=== PATIENT | male | born 2000 | race Hispanic/Latino ===

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

== ENCOUNTER 2022-12-16 15:12 | Observation (INO) | payer OTHER ==
[~2022-12-16] VITALS: Ht 177.8 cm; Wt 113.4 kg
[~2022-12-16 15:12] MED LIST changes: +TOBRAMYCIN0.3 % OS
--- NOTE | 2022-12-16 15:12 | NUR ---
PT ARRIVE TO ER VIA EMS. PT PLACED IN RM 3. PROVIDER NOTIFIED.
--- NOTE | 2022-12-16 15:38 | NUR ---
PT LAYING IN BED, MEDICATED PER EMAR TOLERATING MEDS WELL; FAMILIES AT BEDSIDE.
--- NOTE | 2022-12-16 15:54 | NUR ---
PT INFORMED WE NEED UA.
[2022-12-16 16:33] LABS: BASO% 0.3 % (0-3); EOS% 0.2 % (0-8); HEMATOCRIT 50.1 % (39.0-50.0); HEMOGLOBIN 16.6 g/dl (14.0-18.0); IMMATURE GRANULOCYTES 0.3 % (0.0-5.0); LYMPH% 11.1 % (15-41); MEAN CELL VOLUME 81.1 fL CALC (80.0-100.0); MEAN CORPUSCULAR HGB 26.9 pG CALC (26.0-32.0); MEAN CORPUSCULAR HGB CONC 33.1 g/dL CAL (32.0-36.0); MONO% 5.6 % (2-13); NEUT# 8.91 thou/uL (1.82-7.42); NEUT% 82.5 % (42-76); RED BLOOD COUNT 6.18 mill/uL (4.70-6.10); RED CELL DISTRI WIDTH 12.2 % (11.5-15.5)
[2022-12-16 16:46] LABS: ALBUMIN 4.3 g/dL (3.2-5.0); ALKALINE PHOSPHATASE 104 u/l (38-126); ANION GAP 17 (6-22 (CALC)); BUN 10 mg/dL (9-20); BUN/CREATININE RATIO 17 (12-20 (CALC)); CARBON DIOXIDE 21 mmol/l (22-30); CHLORIDE 103 mmol/l (95-108); CREATININE 0.6 mg/dL (0.7-1.3); GFR FOR AFR.AMER. > 60 ML/MIN (>=60 (CALC)); GFR OTHER RACES > 60 ML/MIN (>=60 (CALC)); POTASSIUM 4.8 mmol/l (3.5-5.1); SGOT/AST 38 u/l (17-59); SODIUM 136 mmol/l (137-146); TOTAL PROTEIN 7.6 g/dL (6.3-8.2)
[2022-12-16 16:52] LABS: BILIRUBIN, TOTAL 0.9 mg/dL (0.2-1.3)
--- NOTE | 2022-12-16 17:41 | NUR ---
PT REMINDED AGAIN OF UA.
--- NOTE | 2022-12-16 18:27 | NUR ---
PT SITTING UP IN BED COMMUNICATING WITH FAMILIES, HE STATED "I FEEL MUCH BETTER NOW" VOICE NO CONCERNS.
[2022-12-16 18:40] LABS: URINE BILIRUBIN - DIPSTICK NEGATIVE (NEGATIVE); URINE BLOOD DIPSTICK MODERATE (NEGATIVE); URINE COLOR YELLOW; URINE GLUCOSE - DIPSTICK >=1000 mg/dL (NEGATIVE); URINE KETONE >=80 mg/dL (NEGATIVE); URINE LEUK ESTERASE NEGATIVE (NEGATIVE); URINE PH 6.5 (4.5-8.0); URINE PROTEIN - DIPSTICK 100 mg/dL (NEG-TRACE); URINE SPECIFIC GRAVITY 1.025; URINE UROBILINOGEN - DIPSTICK 0.2 E.U./dL (0.2)
[2022-12-16 18:45] LABS: URINE NITRITE - DIPSTICK NEGATIVE (Negative)
[2022-12-16 18:56] LABS: URINE WBC 0-2 WBC/hpf (0-5)
--- NOTE | 2022-12-16 19:10 | NUR ---
PT C/O OF NAUSEA AND ABD PAIN, MD NOTIFIED.
--- NOTE | 2022-12-16 20:41 | NUR ---
to floor with pt in w/c.
[2022-12-16 20:53] VITALS: BP 115/48
--- NOTE | 2022-12-16 21:07 | NUR ---
PT ARRIVED TO MS @2049 VIA WHEELCHAIR, ACCOMPANIED BY KARYNA ARNETT. PT ORIENTED TO ROOM AND USE OF CALL LIGHT. VS AND ASSESSMENT COMPLETED. PT A&O X3. EVEN AND UNLABORED RESPIRATIONS; CLEAR LUNG SOUNDS ON LOLIS. IV SITE HEALTHY AND PATENT. SKIN IS INTACT. SAFETY PRECAUTIONS IN PLACE WITH CALL LIGHT IN REACH.
--- NOTE | 2022-12-17 | NUR ---
PT RESTING WITH EYES CLOSED. FAMILY MEMBER AT BEDSIDE. NO DISTRESS OR PAIN NOTED. NO NEEDS AT THIS TIME. SAFETY PRECAUTIONS IN PLACE WITH CALL LIGHT IN REACH.
[2022-12-17 06:20] VITALS: BP 100/59
--- NOTE | 2022-12-17 06:20 | NUR ---
PT WAKING UP AIDE ENTERS THE ROOM. VS COMPLETED. NO DISTRESS NOTED. PT DENIES PAIN AT THIS TIME. FAMILY MEMBER AT BEDSIDE. NO NEEDS AT THE MOMENT. SAFETY PRECAUTIONS IN PLACE WITH CALL LIGHT IN REACH.
[2022-12-17 07:24] VITALS: BP 100/59
--- NOTE | 2022-12-17 07:30 | NUR ---
RECEIVED REPORT FROM NIGHTSHIFT NURSE. PT NOTED LAYING IN BED, A/OX3. GIRLFRIEND AT BEDSIDE. PT DENIES ANY PAIN OR N/V AT THIS TIME. PT EXPRESSED BEING ABLE TO EAT SNACKS THROUGH OUT NIGHT WITH NO COMPLICATIONS. PT ASSESSMENT COMPLETED, EMS IV SITE NOTED IN RT AC. APPEARS HEALTHY WITH BLOOD RETURN. CALL LIGHT WITHIN REACH AND SAFETY PRECAUTIONS IN PLACE.
[2022-12-17 07:42] LABS: MAGNESIUM 1.8 mg/dL (1.6-2.3)
[2022-12-17 07:51] LABS: CHOLESTEROL HDL RATIO 7.5 (<4.4 (CALC))
[2022-12-17] MEDS ORDERED: LEVEMIR FL100 UNIT/M SC (11:32)
--- NOTE | 2022-12-17 11:58 | NUR ---
EDUCATED PT ON DIABETES, BLOOD SUGAR, AND INSULIN. PT DEMONTRATED SELF INJECTION ON LEVEMIR PER EMAR IN ABD. PT EXPRESSED UNDERSTANDING OF INSULIN PROTOCOL AND DIETS TO FOLLOW. WILL FOLLOW UP AFTER LUNCH OF EDUCATION AND DEMONSTRATION OF GLUCOMETER. CALL LIGHT WITHIN REACH AND SAFETY PRECAUTIONS IN PLACE.
--- NOTE | 2022-12-17 13:49 | NUR ---
Discharge instructions given. Patient verbalizes understanding of same. Discharged in stable condition via Wheelchair to Home with family. All belongings sent with pt. PT DEMONSTRATED USE OG GLUCOMETER. PT INIDICATED UNDERSTANDING OF DIABETIC DIAGNOSIS AND BEGINNING DIET. IV REMOVED W/ CATHETER INTACT.
== END 2022-12-17 13:48 | disposition home or self-care (01) ==
LOC: ED 15:12 → MS2 19:26
PROVIDERS: Internal Medicine; Nurse Practitioner; ADMIT Internal Medicine; ATTEND Internal Medicine
DX: E11.65 Type 2 diabetes mellitus with hyperglycemia (principal); E86.0 Dehydration; T38.3X6A Underdosing of insulin and oral hypoglycemic [antidiabetic] drugs, initial encounter; Z91.128 Patient's intentional underdosing of medication regimen for other reason; Z79.4 Long term (current) use of insulin; Z79.84 Long term (current) use of oral hypoglycemic drugs; Z20.822 Contact with and (suspected) exposure to COVID-19
CPT/HCPCS: G0378; Q9967

== ENCOUNTER 2023-07-09 09:11 | Observation (INO) | payer OTHER ==
[~2023-07-09] VITALS: Ht 177.8 cm; Wt 118.6 kg
[2023-07-09] VITALS (29 sets, daily range): BP systolic 90–153; BP diastolic 44–102
[~2023-07-09 09:11] MED LIST changes: +LEVEMIR FL100 UNIT/M SC
--- NOTE | 2023-07-09 09:14 | NUR ---
PT WALKED BACK TO ER ROOM 14, FAMILY AT SIDE
[2023-07-09 09:34] LABS: BASO% 0.2 % (0-3); EOS% 0.2 % (0-8); HEMATOCRIT 50.9 % (39.0-50.0); HEMOGLOBIN 17.3 g/dl (14.0-18.0); IMMATURE GRANULOCYTES 0.2 % (0.0-5.0); LYMPH% 16.7 % (15-41); MEAN CELL VOLUME 81.2 fL CALC (80.0-100.0); MEAN CORPUSCULAR HGB 27.6 pG CALC (26.0-32.0); MONO% 7.5 % (2-13); NEUT# 7.64 thou/uL (1.82-7.42); NEUT% 75.2 % (42-76); RED BLOOD COUNT 6.27 mill/uL (4.70-6.10); RED CELL DISTRI WIDTH 12.2 % (11.5-15.5)
--- NOTE | 2023-07-09 09:36 | NUR ---
PT MEDICATED PER EMAR, PT SITING IN BED, PT CO NAUSEA AND VOMITING, CALL LIGHT WITHIN REACH, VSS
[2023-07-09 09:53] LABS: ALBUMIN 4.2 g/dL (3.2-5.0); ALKALINE PHOSPHATASE 107 u/l (38-126); BILIRUBIN, TOTAL 0.9 mg/dL (0.2-1.3); BUN 8 mg/dL (9-20); BUN/CREATININE RATIO 12 (12-20 (CALC)); CARBON DIOXIDE 21 mmol/l (22-30); CHLORIDE 100 mmol/l (95-108); CREATININE 0.7 mg/dL (0.7-1.3); GFR FOR AFR.AMER. > 60 ML/MIN (>=60 (CALC)); GFR OTHER RACES > 60 ML/MIN (>=60 (CALC)); SGOT/AST 51 u/l (17-59); SODIUM 136 mmol/l (137-146)
[2023-07-09 09:57] LABS: ANION GAP 18 (6-22 (CALC)); POTASSIUM 3.4 mmol/l (3.5-5.1)
--- NOTE | 2023-07-09 10:10 | NUR ---
PT MEDICATED PER EMAR, PT CO ABD PAIN 06/18, MD NOTIFIED
[2023-07-09] MEDS ORDERED: K-TAB20 MEQ PO (10:21)
[2023-07-09] MEDS ORDERED: ZOFRAN4 MG/TAB PO (10:21)
--- NOTE | 2023-07-09 10:29 | NUR ---
pt medicated per emar, vss, asked pt for a urine sample, per pt he is not able to viod at this time, call light within reach
--- NOTE | 2023-07-09 11:30 | NUR ---
PT C/O C/P 06/18, VSS SEE VS LOG, EKG DONE, PROVIDER INFORMED AND GIVEN EKG RESULTS.
--- NOTE | 2023-07-09 12:07 | NUR ---
PROVIDER AT BEDSIDE TO GO OVER TEST RESULTS
[2023-07-09 12:12] LABS: URINE BILIRUBIN - DIPSTICK Negative (NEGATIVE); URINE BLOOD DIPSTICK Moderate (NEGATIVE); URINE GLUCOSE - DIPSTICK 500 mg/dL (NEGATIVE); URINE KETONE >=160 mg/dL (NEGATIVE); URINE LEUK ESTERASE Negative (NEGATIVE); URINE NITRITE - DIPSTICK Negative (Negative); URINE PROTEIN - DIPSTICK >=300 mg/dL (NEG-TRACE)
[2023-07-09 12:17] LABS: URINE COLOR Yellow
--- NOTE | 2023-07-09 13:59 | NUR ---
PT MEDICATIED PER EMAR, REPORTS RELIEF FROM NAUSEA, VSS, RESTING AND CALM, CALL LIGHT IN REACH, IN ROOM, ADVISED WAIT TIME FOR ADMISSION.
--- NOTE | 2023-07-09 14:43 | NUR ---
CALLED REPORT TO HANDS ASSEMBLERKARYNA SIGALA
--- NOTE | 2023-07-09 14:50 | NUR ---
PT TRANSPORTED TO ICU BED 8, VSS, LENS POLISHER AT BEDSIDE FOR ADDITIONAL REPORT
--- NOTE | 2023-07-09 15:00 | NUR ---
REPORT RECIEVED FROM CROWNING INSPECTOR. PT CAME TO ER DUE TO N/V AND ABDOMINAL PAIN. PT ADMITTED WITH COVID PNEUMONIA AND HYPERGLYCEMIA; PT REPORTED TO HAVE DIABETES SINCE AGE 8. PT BROUGHT TO ICU A MED-SURG OVERFLOW BY WHEELCHAIR. PT IS A/O. LUNGS DIMINISHED. PT IS ON RA. DENIES SOB AT THIS TIME. NO COUGH NOTED. HEART RHYTHM REGULAR; PT IS NSR. ABDOMEN SOFT/NON-TENDER. PT DENIES NAUSEA AT THIS TIME. EMESIS BAG AT BEDSIDE. PULSES STRONG ALL EXTREMETIES. SKIN W/D/I. AFEBRILE. IV ACCESS 20G RAC. PT DENIES ANY NEEDS AT THIS TIME. CALL LIGHT AND BELONGINGS WITHIN REACH. VSS. FAMILY AT BEDSIDE.
--- NOTE | 2023-07-09 17:08 | NUR ---
PT REQUESTING SOMETHING TO EAT. PT GIVEN JELLO. FAMILY AT BEDSIDE. VSS.
--- NOTE | 2023-07-09 19:30 | NUR ---
awake. denies distress. youth nutritional monitor shows sinus rhythm. #20 rac ns infusing @ 100cchr. po fluids taken well. voids without diff. @ bedside. dall precautions cont.
[2023-07-10] VITALS (9 sets, daily range): BP systolic 100–128; BP diastolic 52–84
[2023-07-10 06:13] LABS: BASO% 0.4 % (0-3); EOS% 0.6 % (0-8); HEMATOCRIT 45.1 % (39.0-50.0); IMMATURE GRANULOCYTES 0.2 % (0.0-5.0); LYMPH% 17.6 % (15-41); MEAN CELL VOLUME 83.2 fL CALC (80.0-100.0); MEAN CORPUSCULAR HGB 27.7 pG CALC (26.0-32.0); MEAN CORPUSCULAR HGB CONC 33.3 g/dL CAL (32.0-36.0); MONO% 10.1 % (2-13); NEUT# 5.78 thou/uL (1.82-7.42); NEUT% 71.1 % (42-76); RED BLOOD COUNT 5.42 mill/uL (4.70-6.10); RED CELL DISTRI WIDTH 12.3 % (11.5-15.5)
[2023-07-10 06:26] LABS: ALKALINE PHOSPHATASE 75 u/l (38-126); ANION GAP 11 (6-22 (CALC)); BILIRUBIN, TOTAL 0.8 mg/dL (0.2-1.3); BUN 9 mg/dL (9-20); BUN/CREATININE RATIO 13 (12-20 (CALC)); CARBON DIOXIDE 24 mmol/l (22-30); CHLORIDE 105 mmol/l (95-108); CREATININE 0.7 mg/dL (0.7-1.3); GFR FOR AFR.AMER. > 60 ML/MIN (>=60 (CALC)); GFR OTHER RACES > 60 ML/MIN (>=60 (CALC)); MAGNESIUM 1.8 mg/dL (1.6-2.3); POTASSIUM 3.8 mmol/l (3.5-5.1); SGOT/AST 30 u/l (17-59); SODIUM 137 mmol/l (137-146)
[2023-07-10 06:27] LABS: ALBUMIN 3.2 g/dL (3.2-5.0)
--- NOTE | 2023-07-10 07:30 | NUR ---
PERFROMED BEDSIDE REPORT WITH NIGHTSHIFT NURSE. PT NOTED LAYING SEMI FOWLERS IN BED, RESTING COMFORTABLY AT THIS TIME. AT BED SIDE. PT ON RM AIR, NO S/S OF DISTRESS. VSS. CALL LIGHT WITHIN REACH AND SAFETY PRECAUTIONS IN PPLACE.
--- NOTE | 2023-07-10 12:10 | NUR ---
PT IS SITTING UP IN BED EATING LUNCH AT THIS TIME. VSS. NO S.S OF DISTRESS. CALL LIGHT WITHIN REACH AND SAFETY PRECAUTIONS IN PLACE.
[2023-07-10] MEDS ORDERED: LEVEMIR100 UNIT SC (13:55)
[2023-07-10] MEDS ORDERED: OMNICEF300 MG PO (13:59)
[2023-07-10] MEDS ORDERED: AZITHROMYCIN500 MG PO (13:59)
--- NOTE | 2023-07-10 14:48 | NUR ---
IV site discontinued, cath intact. No edema , no redness, voices no discomfort. Discharge instructions given. Patient verbalizes understanding of same. Discharged in stable condition via Ambulatory to Home with staff. All belongings sent with pt.
== END 2023-07-10 14:50 | disposition home or self-care (01) ==
LOC: ED 09:11 → ED-I 12:00 → ED 12:17 → ICU 12:18
PROVIDERS: Family Medicine; Nurse Practitioner Family; ADMIT Student in an Organized Health Care Education/Training Program; ATTEND Student in an Organized Health Care Education/Training Program
DX: U07.1 COVID-19 (principal); J12.82 Pneumonia due to coronavirus disease 2019; R11.2 Nausea with vomiting, unspecified; E86.0 Dehydration; E11.65 Type 2 diabetes mellitus with hyperglycemia; Z79.4 Long term (current) use of insulin
CPT/HCPCS: J1650; Q9967; S0164

== ENCOUNTER 2023-07-12 10:01 | Observation (INO) | payer OTHER ==
[~2023-07-12] VITALS: Ht 182.9 cm; Wt 115.2 kg
[2023-07-12] VITALS (13 sets, daily range): BP systolic 97–182; BP diastolic 64–94
[~2023-07-12 10:01] MED LIST changes: +AZITHROMYCIN500 MG PO; +K-TAB20 MEQ PO; +LEVEMIR100 UNIT SC; +OMNICEF300 MG PO; +ZOFRAN4 MG/TAB PO
--- NOTE | 2023-07-12 10:01 | NUR ---
PT TO ER ROOM 10 C\O SOB, ABD PAIN, & N/V. WITH PATIENT.
--- NOTE | 2023-07-12 10:15 | NUR ---
PT IS IN BED VOMITING, HEAD OF BED RAISED, MD NOTIFIED. MEDICATIONS ORDERED.
--- NOTE | 2023-07-12 10:24 | NUR ---
PATIENT MEDICATED PER eMAR.
--- NOTE | 2023-07-12 10:35 | NUR ---
PT CONTINUUES TO BE NAUSEATED AND CONTINUES VOMITING. MD NOTIFIED, MEDS ORDERED.
[2023-07-12 10:36] LABS: BASO% 0.6 % (0-3); EOS% 0.7 % (0-8); IMMATURE GRANULOCYTES 0.4 % (0.0-5.0); LYMPH% 21.5 % (15-41); MEAN CELL VOLUME 81.5 fL CALC (80.0-100.0); MEAN CORPUSCULAR HGB 27.8 pG CALC (26.0-32.0); MEAN CORPUSCULAR HGB CONC 34.2 g/dL CAL (32.0-36.0); MONO% 14.1 % (2-13); NEUT# 3.39 thou/uL (1.82-7.42); NEUT% 62.7 % (42-76); RED BLOOD COUNT 6.47 mill/uL (4.70-6.10); RED CELL DISTRI WIDTH 12.6 % (11.5-15.5)
--- NOTE | 2023-07-12 10:39 | NUR ---
PT MEDICATED PER eMAR.
[2023-07-12 10:40] LABS: HEMATOCRIT 52.7 % (39.0-50.0)
[2023-07-12 10:42] LABS: ALKALINE PHOSPHATASE 110 u/l (38-126); ANION GAP 16 (6-22 (CALC)); BILIRUBIN, TOTAL 0.9 mg/dL (0.2-1.3); BUN 8 mg/dL (9-20); BUN/CREATININE RATIO 12 (12-20 (CALC)); CARBON DIOXIDE 24 mmol/l (22-30); CHLORIDE 100 mmol/l (95-108); CREATININE 0.7 mg/dL (0.7-1.3); GFR FOR AFR.AMER. > 60 ML/MIN (>=60 (CALC)); GFR OTHER RACES > 60 ML/MIN (>=60 (CALC)); POTASSIUM 3.4 mmol/l (3.5-5.1); SODIUM 137 mmol/l (137-146)
[2023-07-12 10:44] LABS: ALBUMIN 4.4 g/dL (3.2-5.0); SGOT/AST 65 u/l (17-59); TOTAL PROTEIN 8.3 g/dL (6.3-8.2)
--- NOTE | 2023-07-12 11:06 | NUR ---
PT MEDIACTED PER eMAR FOR CONTINUED N/V
--- NOTE | 2023-07-12 11:10 | NUR ---
PT GIVEN URINAL AND EDUACTED ON THE NEED FOR A URINE SAMPLE.
--- NOTE | 2023-07-12 11:55 | NUR ---
PT TAKEN DOWN TO ULTRASOUND.
--- NOTE | 2023-07-12 12:15 | NUR ---
PT RETURN FROM ULTRASOUND.
--- NOTE | 2023-07-12 12:22 | NUR ---
PT MEDICATED PER eMAR.
--- NOTE | 2023-07-12 13:21 | NUR ---
ATTEMP TO CALL REPORT TO NURSE ON MS2. NURSE WAS BUSY AND SAID WOULD CALL BACK TO RECIEVE REPORT.
--- NOTE | 2023-07-12 13:22 | NUR ---
PT RESTING IN BED. PT STATES HE FEELS A LITTLE BIT BETTER. HAS LEFT BEDSIDE. PT DENIES ANY NEEDS.
--- NOTE | 2023-07-12 14:19 | NUR ---
REPORT CALLED AND GIVEN TO KESHIA ON MS2.
--- NOTE | 2023-07-12 14:21 | NUR ---
PT TAKEN UPSTAIR VIA WHEELCHAIR. CARE IS RELINQUISHED.
--- NOTE | 2023-07-12 14:46 | NUR ---
PT TAKEN UPSTAIRS TO MS2 ROOM 263. CARE IS RELINQUISHED.
--- NOTE | 2023-07-12 15:30 | NUR ---
REPORT RECEIVED FROM [place] IN ED, PT ARRIVED ON UNIT AT 1430 TRANSPORTED VIA W/C AND TRANSFERRED TO BED. GROGGY BUT ORIENTED AT THIS TIME, C/O EPIGASTRIC ACHING PAIN @ 5/10, TELE MONITOR IN PLACE, ORIENTED TO ROOM AND CALL [place] LE[place]. SPOUSE IN ROOM WITH MANY QUESTIONS AND REPORTED PT WAS HERE 7 MONTHS AGO AND RECENTLY WITH THE SAME PROBLEM AND WANTS TO FIND OUT WHAT IS WRONG. ADVISED TO DISCUSS CONCERNS WITH .
--- NOTE | 2023-07-12 18:30 | NUR ---
MD NOTIFIED OF NEW PT NOT HAVING ORDERS, GAVE VERBAL ORDERS AND ALSO WROTE ORDERS, NIGHT RN WILL CONTINUE TO MONITOR AND ASSESS.
--- NOTE | 2023-07-12 22:16 | NUR ---
RECEIVED SHIFT REPORT. PT LYING IN BED WITH EYES CLOSED. IV FLUIDS INFUSING. ANSWERS QUESTIONS APPROPRIATELY. DENIES NAUSEA OR PAIN AT THAT TIME. SAFETY PRECAUTIONS MAINTAINED. CALL LIGHT IN REACH
[2023-07-13 00:26] VITALS: BP 107/65
--- NOTE | 2023-07-13 01:42 | NUR ---
PT RANG CALL LIGHT AT 0130 AND STATED"I WANT TO GO HOME" HE WAS OFFERED SLEEPING MEDICATION AND REFUSED. RN SUGGESTED THAT PT TRY TO TAKE THE MEIDICATION SO HE CAN REST. PT CONTINUED TO WANT TO GO HOME AFTER SOME MEDICAL RISKS OF LEAVING AMA. PT CONTINUED TO SIGN OUT AMA. SALINE LOCK REMEOVED. FAMILY MEMBER WITH PT. PT LEFT AMBUALTORY AT 0140. ALERT AND ORIENTED X 3. NURSING AUDIT LEAD AWARE.
== END 2023-07-13 01:30 | disposition left against medical advice (07) ==
LOC: ED 10:01 → ED-I 12:24 → ED 12:35 → MS2 12:36
PROVIDERS: Family Medicine; ADMIT Student in an Organized Health Care Education/Training Program; ATTEND Student in an Organized Health Care Education/Training Program
DX: U07.1 COVID-19 (principal); R11.2 Nausea with vomiting, unspecified; R10.84 Generalized abdominal pain; E11.9 Type 2 diabetes mellitus without complications; E66.01 Morbid (severe) obesity due to excess calories; Z79.4 Long term (current) use of insulin
CPT/HCPCS: G0378

== ENCOUNTER 2023-11-13 08:37 | Emergency (ER) | payer OTHER ==
[~2023-11-13] VITALS: Ht 182.9 cm; Wt 113.0 kg
[2023-11-13] VITALS (14 sets, daily range): BP systolic 123–171; BP diastolic 67–100
[~2023-11-13 08:37] MED LIST changes: +OMEPRAZOLE20 MG PO; +PROMETHAZINE HY25 M1 PO
[2023-11-13 09:09] LABS: BASO% 0.3 % (0-3); EOS% 0.2 % (0-8); HEMOGLOBIN 16.1 g/dl (14.0-18.0); IMMATURE GRANULOCYTES 0.5 % (0.0-5.0); LYMPH% 19.6 % (15-41); MEAN CORPUSCULAR HGB 27.8 pG CALC (26.0-32.0); MEAN CORPUSCULAR HGB CONC 34.3 g/dL CAL (32.0-36.0); MONO% 7.9 % (2-13); NEUT# 6.21 thou/uL (1.82-7.42); NEUT% 71.5 % (42-76); RED BLOOD COUNT 5.8 mill/uL (4.70-6.10); RED CELL DISTRI WIDTH 12.3 % (11.5-15.5)
[2023-11-13 09:18] LABS: ALBUMIN 3.8 g/dL (3.2-5.0); ALKALINE PHOSPHATASE 92 u/l (38-126); ANION GAP 17 (6-22 (CALC)); BILIRUBIN, TOTAL 1.1 mg/dL (0.2-1.3); BUN 11 mg/dL (9-20); BUN/CREATININE RATIO 17 (12-20 (CALC)); CARBON DIOXIDE 15 mmol/l (22-30); CHLORIDE 106 mmol/l (95-108); CREATININE 0.6 mg/dL (0.7-1.3); ETHYL ALCOHOL 0 mg/dl (0-30); GFR FOR AFR.AMER. > 60 ML/MIN (>=60 (CALC)); GFR OTHER RACES > 60 ML/MIN (>=60 (CALC)); LIPASE 60 u/l (23-300); POTASSIUM 3.5 mmol/l (3.5-5.1); SGOT/AST 40 u/l (17-59); SODIUM 135 mmol/l (137-146); TOTAL PROTEIN 6.8 g/dL (6.3-8.2)
== END 2023-11-13 11:56 | disposition home or self-care (01) ==
LOC: ED 08:37
PROVIDERS: Family Medicine
DX: R11.2 Nausea with vomiting, unspecified (principal); F12.90 Cannabis use, unspecified, uncomplicated; E11.9 Type 2 diabetes mellitus without complications; E66.9 Obesity, unspecified; Z79.4 Long term (current) use of insulin; Z20.822 Contact with and (suspected) exposure to COVID-19

== ENCOUNTER 2023-11-16 12:28 | Emergency (ER) | payer OTHER ==
[~2023-11-16] VITALS: Ht 182.9 cm; Wt 113.3 kg
[2023-11-16] VITALS (26 sets, daily range): BP systolic 124–197; BP diastolic 60–100
[2023-11-16 14:04] LABS: BASO% 0.2 % (0-3); HEMATOCRIT 49.4 % (39.0-50.0); HEMOGLOBIN 16.8 g/dl (14.0-18.0); IMMATURE GRANULOCYTES 0.3 % (0.0-5.0); LYMPH% 8.3 % (15-41); MEAN CELL VOLUME 80.5 fL CALC (80.0-100.0); MEAN CORPUSCULAR HGB 27.4 pG CALC (26.0-32.0); MONO% 2.5 % (2-13); NEUT# 8.74 thou/uL (1.82-7.42); NEUT% 88.7 % (42-76); RED BLOOD COUNT 6.14 mill/uL (4.70-6.10); RED CELL DISTRI WIDTH 12.1 % (11.5-15.5)
[2023-11-16 14:43] LABS: ALBUMIN 4.4 g/dL (3.2-5.0); ALKALINE PHOSPHATASE 109 u/l (38-126); AMYLASE 57 u/l (30-110); ANION GAP 20 (6-22 (CALC)); BILIRUBIN, TOTAL 1.4 mg/dL (0.2-1.3); BUN 6 mg/dL (9-20); BUN/CREATININE RATIO 11 (12-20 (CALC)); CARBON DIOXIDE 17 mmol/l (22-30); CHLORIDE 102 mmol/l (95-108); CREATININE 0.6 mg/dL (0.7-1.3); GFR FOR AFR.AMER. > 60 ML/MIN (>=60 (CALC)); GFR OTHER RACES > 60 ML/MIN (>=60 (CALC)); LIPASE 27 u/l (23-300); POTASSIUM 3.9 mmol/l (3.5-5.1); SGOT/AST 49 u/l (17-59); SODIUM 135 mmol/l (137-146); TOTAL PROTEIN 7.6 g/dL (6.3-8.2)
[2023-11-16 15:36] LABS: URINE BLOOD DIPSTICK Moderate (NEGATIVE); URINE GLUCOSE - DIPSTICK 500 mg/dL (NEGATIVE); URINE KETONE >=160 mg/dL (NEGATIVE); URINE LEUK ESTERASE Negative (NEGATIVE); URINE NITRITE - DIPSTICK Negative (Negative); URINE PROTEIN - DIPSTICK >=300 mg/dL (NEG-TRACE); URINE SPECIFIC GRAVITY 1.025
[2023-11-16 15:44] LABS: URINE COLOR Yellow
[2023-11-16 15:45] LABS: URINE WBC 0-2 WBC/hpf (0-5)
== END 2023-11-16 20:12 | disposition left against medical advice (07) ==
LOC: ED 12:28 → ED-I 16:20 → ED 20:12
PROVIDERS: Nurse Practitioner
DX: R11.2 Nausea with vomiting, unspecified (principal); F12.90 Cannabis use, unspecified, uncomplicated; E11.65 Type 2 diabetes mellitus with hyperglycemia; Z79.4 Long term (current) use of insulin
CPT/HCPCS: S0164

== ENCOUNTER 2023-11-18 18:46 | Emergency (ER) | payer OTHER ==
[2023-11-18] VITALS (10 sets, daily range): BP systolic 114–156; BP diastolic 70–129
[~2023-11-18] VITALS: Ht 182.9 cm; Wt 81.6 kg
[2023-11-18 21:14] LABS: BASO% 0.3 % (0-3); EOS% 0.2 % (0-8); HEMATOCRIT 49.2 % (39.0-50.0); IMMATURE GRANULOCYTES 0.3 % (0.0-5.0); LYMPH% 16.1 % (15-41); MEAN CELL VOLUME 79.6 fL CALC (80.0-100.0); MEAN CORPUSCULAR HGB 27.5 pG CALC (26.0-32.0); MEAN CORPUSCULAR HGB CONC 34.6 g/dL CAL (32.0-36.0); MONO% 6.7 % (2-13); NEUT# 9.08 thou/uL (1.82-7.42); NEUT% 76.4 % (42-76); RED BLOOD COUNT 6.18 mill/uL (4.70-6.10)
[2023-11-18 21:19] LABS: ALBUMIN 4.5 g/dL (3.2-5.0); ALKALINE PHOSPHATASE 116 u/l (38-126); ANION GAP 19 (6-22 (CALC)); BILIRUBIN, TOTAL 1.2 mg/dL (0.2-1.3); BUN 5 mg/dL (9-20); BUN/CREATININE RATIO 9 (12-20 (CALC)); CARBON DIOXIDE 19 mmol/l (22-30); CHLORIDE 101 mmol/l (95-108); CPK 54 u/l (55-170); CREATININE 0.6 mg/dL (0.7-1.3); GFR FOR AFR.AMER. > 60 ML/MIN (>=60 (CALC)); GFR OTHER RACES > 60 ML/MIN (>=60 (CALC)); LIPASE 33 u/l (23-300); MAGNESIUM 1.7 mg/dL (1.6-2.3); POTASSIUM 3.4 mmol/l (3.5-5.1); SGOT/AST 36 u/l (17-59); SODIUM 135 mmol/l (137-146); TOTAL PROTEIN 7.7 g/dL (6.3-8.2)
[2023-11-19] VITALS (23 sets, daily range): BP systolic 117–156; BP diastolic 61–97
[2023-11-19 00:58] LABS: BUN 6 mg/dL (9-20); BUN/CREATININE RATIO 12 (12-20 (CALC)); CHLORIDE 109 mmol/l (95-108); CREATININE 0.5 mg/dL (0.7-1.3); GFR FOR AFR.AMER. > 60 ML/MIN (>=60 (CALC)); GFR OTHER RACES > 60 ML/MIN (>=60 (CALC)); SGOT/AST 32 u/l (17-59)
[2023-11-19 01:01] LABS: ALKALINE PHOSPHATASE 69 u/l (38-126)
[2023-11-19 01:04] LABS: ALBUMIN 3.2 g/dL (3.2-5.0); BILIRUBIN, TOTAL 0.7 mg/dL (0.2-1.3); CARBON DIOXIDE 21 mmol/l (22-30); TOTAL PROTEIN 5.7 g/dL (6.3-8.2)
[2023-11-19 01:11] LABS: ANION GAP 12 (6-22 (CALC)); POTASSIUM 3.6 mmol/l (3.5-5.1); SODIUM 138 mmol/l (137-146)
[2023-11-19 03:31] LABS: ALKALINE PHOSPHATASE 69 u/l (38-126); BUN 5 mg/dL (9-20); BUN/CREATININE RATIO 10 (12-20 (CALC)); CHLORIDE 109 mmol/l (95-108); CREATININE 0.5 mg/dL (0.7-1.3); GFR FOR AFR.AMER. > 60 ML/MIN (>=60 (CALC)); GFR OTHER RACES > 60 ML/MIN (>=60 (CALC)); POTASSIUM 3.6 mmol/l (3.5-5.1); SGOT/AST 30 u/l (17-59); SODIUM 139 mmol/l (137-146)
[2023-11-19 03:34] LABS: ALBUMIN 3.2 g/dL (3.2-5.0); ANION GAP 11 (6-22 (CALC)); BILIRUBIN, TOTAL 0.7 mg/dL (0.2-1.3); CARBON DIOXIDE 23 mmol/l (22-30); TOTAL PROTEIN 5.8 g/dL (6.3-8.2)
[2023-11-19 06:00] LABS: ALBUMIN 2.8 g/dL (3.2-5.0); ALKALINE PHOSPHATASE 62 u/l (38-126); ANION GAP 9 (6-22 (CALC)); BILIRUBIN, TOTAL 0.7 mg/dL (0.2-1.3); BUN 4 mg/dL (9-20); BUN/CREATININE RATIO 9 (12-20 (CALC)); CARBON DIOXIDE 23 mmol/l (22-30); CHLORIDE 112 mmol/l (95-108); CREATININE 0.5 mg/dL (0.7-1.3); GFR FOR AFR.AMER. > 60 ML/MIN (>=60 (CALC)); GFR OTHER RACES > 60 ML/MIN (>=60 (CALC)); POTASSIUM 3.6 mmol/l (3.5-5.1); SGOT/AST 28 u/l (17-59); SODIUM 139 mmol/l (137-146); TOTAL PROTEIN 5.1 g/dL (6.3-8.2)
== END 2023-11-19 06:30 | disposition home or self-care (01) ==
LOC: ED 18:46
PROVIDERS: Internal Medicine
DX: E10.10 Type 1 diabetes mellitus with ketoacidosis without coma (principal); R11.2 Nausea with vomiting, unspecified; F12.90 Cannabis use, unspecified, uncomplicated; Z79.4 Long term (current) use of insulin

== ENCOUNTER 2023-12-08 12:09 | Emergency (ER) | payer OTHER ==
[2023-12-08] VITALS (18 sets, daily range): BP systolic 100–171; BP diastolic 53–90
[~2023-12-08] VITALS: Ht 182.9 cm; Wt 108.8 kg
[2023-12-08 12:37] LABS: BASO% 0.3 % (0-3); HEMATOCRIT 49.3 % (39.0-50.0); HEMOGLOBIN 16.8 g/dl (14.0-18.0); IMMATURE GRANULOCYTES 0.2 % (0.0-5.0); LYMPH% 11.2 % (15-41); MEAN CORPUSCULAR HGB 27.6 pG CALC (26.0-32.0); MEAN CORPUSCULAR HGB CONC 34.1 g/dL CAL (32.0-36.0); MONO% 3.6 % (2-13); NEUT# 9.5 thou/uL (1.82-7.42); NEUT% 84.7 % (42-76); RED BLOOD COUNT 6.09 mill/uL (4.70-6.10)
[2023-12-08 12:53] LABS: ANION GAP 18 (6-22 (CALC)); BILIRUBIN, TOTAL 0.8 mg/dL (0.2-1.3); BUN 10 mg/dL (9-20); BUN/CREATININE RATIO 17 (12-20 (CALC)); CARBON DIOXIDE 20 mmol/l (22-30); CHLORIDE 102 mmol/l (95-108); CREATININE 0.6 mg/dL (0.7-1.3); GFR FOR AFR.AMER. > 60 ML/MIN (>=60 (CALC)); GFR OTHER RACES > 60 ML/MIN (>=60 (CALC)); POTASSIUM 4.1 mmol/l (3.5-5.1); SGOT/AST 36 u/l (17-59); SODIUM 136 mmol/l (137-146)
[2023-12-08 13:18] LABS: ALBUMIN 4.5 g/dL (3.2-5.0); ALKALINE PHOSPHATASE 118 u/l (38-126); TOTAL PROTEIN 7.6 g/dL (6.3-8.2)
[2023-12-08 15:33] LABS: URINE BILIRUBIN - DIPSTICK Negative (NEGATIVE); URINE BLOOD DIPSTICK Moderate (NEGATIVE); URINE GLUCOSE - DIPSTICK 500 mg/dL (NEGATIVE); URINE KETONE >=160 mg/dL (NEGATIVE); URINE LEUK ESTERASE Negative (NEGATIVE); URINE NITRITE - DIPSTICK Negative (Negative); URINE PH 7.5 (4.5-8.0); URINE PROTEIN - DIPSTICK >=300 mg/dL (NEG-TRACE); URINE SPECIFIC GRAVITY 1.025; URINE UROBILINOGEN - DIPSTICK 0.2 E.U./dL (0.2)
[2023-12-08 15:42] LABS: URINE COLOR Yellow
[2023-12-08] MEDS ORDERED: REGLAN10 MG PO (16:47)
[2023-12-08] MEDS ORDERED: ZOFRAN4 MG/TAB PO (16:47)
== END 2023-12-08 17:03 | disposition home or self-care (01) ==
LOC: ED 12:09
PROVIDERS: Family Medicine
DX: R11.2 Nausea with vomiting, unspecified (principal); F12.90 Cannabis use, unspecified, uncomplicated; E11.65 Type 2 diabetes mellitus with hyperglycemia; Z79.4 Long term (current) use of insulin; Z20.822 Contact with and (suspected) exposure to COVID-19
CPT/HCPCS: S0164

== ENCOUNTER 2023-12-10 07:42 | Emergency (ER) | payer OTHER ==
[~2023-12-10] VITALS: Ht 182.9 cm; Wt 114.8 kg
[2023-12-10] VITALS (11 sets, daily range): BP systolic 113–176; BP diastolic 68–100
[~2023-12-10 07:42] MED LIST changes: +REGLAN10 MG PO
[2023-12-10 08:03] LABS: BASO% 0.5 % (0-3); EOS% 0.6 % (0-8); HEMATOCRIT 45.7 % (39.0-50.0); HEMOGLOBIN 15.6 g/dl (14.0-18.0); IMMATURE GRANULOCYTES 0.3 % (0.0-5.0); LYMPH% 20.9 % (15-41); MEAN CELL VOLUME 80.9 fL CALC (80.0-100.0); MEAN CORPUSCULAR HGB 27.6 pG CALC (26.0-32.0); MEAN CORPUSCULAR HGB CONC 34.1 g/dL CAL (32.0-36.0); MONO% 6.6 % (2-13); NEUT# 5.51 thou/uL (1.82-7.42); NEUT% 71.1 % (42-76); RED BLOOD COUNT 5.65 mill/uL (4.70-6.10); RED CELL DISTRI WIDTH 12.2 % (11.5-15.5)
[2023-12-10] MEDS ORDERED: HUMALOG100 UNIT/M SC (08:09)
[2023-12-10 08:14] LABS: ALBUMIN 4.2 g/dL (3.2-5.0); ALKALINE PHOSPHATASE 86 u/l (38-126); ANION GAP 14 (6-22 (CALC)); BILIRUBIN, TOTAL 0.9 mg/dL (0.2-1.3); BUN 8 mg/dL (9-20); BUN/CREATININE RATIO 16 (12-20 (CALC)); CARBON DIOXIDE 22 mmol/l (22-30); CHLORIDE 104 mmol/l (95-108); CREATININE 0.5 mg/dL (0.7-1.3); GFR FOR AFR.AMER. > 60 ML/MIN (>=60 (CALC)); GFR OTHER RACES > 60 ML/MIN (>=60 (CALC)); LIPASE 224 u/l (23-300); POTASSIUM 4.2 mmol/l (3.5-5.1); SGOT/AST 37 u/l (17-59); SODIUM 136 mmol/l (137-146)
== END 2023-12-10 10:15 | disposition home or self-care (01) ==
LOC: ED 07:42
PROVIDERS: Family Medicine
DX: R11.2 Nausea with vomiting, unspecified (principal); E11.9 Type 2 diabetes mellitus without complications; Z79.4 Long term (current) use of insulin; Z20.822 Contact with and (suspected) exposure to COVID-19